=== PATIENT | male | born 1990 | race American Indian/Alaskan Native ===

== ENCOUNTER 2018-08-06 18:40 | Emergency (ER) | payer OTHER ==
[2018-08-06 18:46] VITALS: BP 139/94
[2018-08-06] MEDS ORDERED: NACL 0.9% 1000 ML 1,000 ML IV ONE (18:46)
[2018-08-06] MEDS ORDERED: ZOFRAN IV ONE ×2 (18:46→21:25)
--- NOTE | 2018-08-06 18:50 | Emergency Department Report ---
Blank Doc - Documentation Documentation: 27 y o male with hx of gastroentritis was seen yesterday bu=y GI foe HIDA scan started experiencing n/v since then labs IVF ACC eval
[2018-08-06 19:31] LABS: Basophils % (Auto) 0.3 % (0.0-1.8); Hematocrit 43.5 % (35.5-45.6); Hemoglobin 15.2 gm/dl (11.8-15.2); Lymphocytes # (Auto) 1.5 K/mm3 (1.2-5.4); Lymphocytes % (Auto) 12.2 % (13.4-35.0); Mean Corpuscular HGB Conc 35 % (32-34); Mean Corpuscular Volume 88 fl (84-94); Monocytes # (Auto) 0.9 K/mm3 (0.0-0.8); Platelet Count 314 K/mm3 (140-440); Red Blood Count 4.93 M/mm3 (3.65-5.03); Red Cell Distribution Width 13.2 % (13.2-15.2)
[2018-08-06 19:43] LABS: Alanine Aminotransferase 12 units/L (7-56); BUN/Creatinine Ratio 16; Blood Urea Nitrogen 14 mg/dL (9-20); Calcium 10.3 mg/dL (8.4-10.2); Hemolysis Index 9
[2018-08-06] MEDS ORDERED: TYLENOL ONE (21:06)
[2018-08-06] MEDS ORDERED: TYLENOL PO ONE (21:06)
[2018-08-06] MEDS ORDERED: ZOFRAN ONE (21:25)
[2018-08-06] MEDS ORDERED: TORADOL ONE (21:25)
[2018-08-06] MEDS ORDERED: TORADOL IV ONE (21:25)
[2018-08-06] MEDS ORDERED: BENTYL IM ONE (21:31)
[2018-08-06] MEDS ORDERED: THORAZINE 25 MG in NACL 0.9% 50 ML IV ONE (21:31)
[2018-08-06 22:10] LABS: Bilirubin,Urine NEG (Negative); Blood,Urine NEG (Negative); Color,Urine Yellow (Yellow); Hyaline Casts,Urine 2 /LPF; Mucus,Urine 3+ /HPF
--- NOTE | 2018-08-06 22:12 | Emergency Department Report ---
ED N/V/D HPI - General Chief complaint: Nausea/Vomiting/Diarrhea Stated complaint: VOMITING Time Seen by Provider: 08/06/18 18:43 Source: patient Mode of arrival: Ambulatory Limitations: No Limitations - History of Present Illness Initial comments: 27 y o male with hx of gastroentritis was seen yesterday buy GI Dr. Birch with [facility] for HIDA for persistanc gastritis for past month, after scan started experiencing n/v , since then there is no fever no chills no diarrhea , pain described as cramping and hiccups, symptoms are exacerbated by eating, symptoms are relieved by nothing tried. MD complaint: nausea, vomiting, abdominal pain (cramping and hiccups ) Onset/Timin -: days(s) Description of Vomiting: food contents Associated Abdominal Pain: Yes Location: diffuse Radiation: none Severity: moderate Pain Scale: 4 Quality: cramping Consistency: intermittent Improves with: rest Worsens with: eating Context: other (hx of gastritis chronic problem flare on month ago ) Associated Symptoms: nausea/vomiting - Related Data Previous Rx's Medication Instructions Recorded Last Taken Type HYDROcodone/APAP 5-325 [[place] 1 each PO Q6H PRN #10 tablet 03/07/15 Unknown Rx 5/325] Promethazine [Phenergan TAB] 25 mg PO Q6HR PRN #12 tab 03/07/15 Unknown Rx Dicyclomine [Bentyl] 10 mg PO QID #40 capsule 08/06/18 Unknown Rx Ondansetron [Zofran Odt] 4 mg PO Q8HR PRN #12 tab.rapdis 08/06/18 Unknown Rx Allergies Allergy/AdvReac Type Severity Reaction Status Date / Time seafood Allergy Swelling Uncoded 08/06/18 18:41 ED Review of Systems ROS: Stated complaint: VOMITING Other details as noted in HPI Constitutional: denies: chills, fever Eyes: denies: eye pain, eye discharge, vision change ENT: denies: ear pain, throat pain Respiratory: denies: cough, shortness of breath, SOB with exertion, wheezing Cardiovascular: denies: chest pain, palpitations, syncope, paroxysmal nocturnal dyspnea Endocrine: no symptoms reported Gastrointestinal: abdominal pain, nausea, vomiting. denies: diarrhea, constipation, hematemesis, melena, hematochezia Genitourinary: denies: urgency, dysuria Musculoskeletal: denies: back pain Skin: denies: rash, lesions Neurological: denies: headache, weakness, numbness, paresthesias, confusion, abnormal gait, vertigo Psychiatric: denies: anxiety, depression Hematological/Lymphatic: denies: easy bleeding, easy bruising ED Past Medical Hx - Past Medical History Additional medical history: gastroenteritis - Surgical History Past Surgical History?: No - Social History Smoking Status: Never Smoker Substance Use Type: Marijuana - Medications Home Medications: Home Medications Medication Instructions Recorded Confirmed Last Taken Type HYDROcodone/APAP 5-325 [[place] 1 each PO Q6H PRN #10 tablet 03/07/15 Unknown Rx 5/325] Promethazine [Phenergan TAB] 25 mg PO Q6HR PRN #12 tab 03/07/15 Unknown Rx Dicyclomine [Bentyl] 10 mg PO QID #40 capsule 08/06/18 Unknown Rx Ondansetron [Zofran Odt] 4 mg PO Q8HR PRN #12 tab.rapdis 08/06/18 Unknown Rx ED Physical Exam - General Limitations: No Limitations General appearance: alert, in no apparent distress - Head Head exam: Present: atraumatic, normocephalic - Eye Eye exam: Present: normal appearance - ENT ENT exam: Present: normal orophraynx, mucous membranes moist - Neck Neck exam: Present: normal inspection, full ROM. Absent: tenderness, lymphadenopathy, thyromegaly - Respiratory Respiratory exam: Present: normal lung sounds bilaterally. Absent: respiratory distress, wheezes, stridor, chest wall tenderness - Cardiovascular Cardiovascular Exam: Present: regular rate, normal rhythm, normal heart sounds. Absent: systolic murmur, diastolic murmur, rubs, gallop - GI/Abdominal GI/Abdominal exam: Present: soft, normal bowel sounds. Absent: distended, tenderness, guarding, rebound, rigid, mass, hernia - Expanded GI/Abdominal Exam Expanded GI/Abdominal exam: Absent: psoas sign, obturator sign, heel tap sign, Koch's sign, Rovsing's sign, tenderness at [place]bur[place]'s Point, ascites - Rectal Rectal exam: Present: deferred - Extremities Exam Extremities exam: Present: normal inspection, full ROM, normal capillary refill. Absent: tenderness - Back Exam Back exam: Present: normal inspection. Absent: full ROM, CVA tenderness (R), CVA tenderness (L) - Neurological Exam Neurological exam: Present: alert, oriented X3, CN II-XII intact, normal gait - Psychiatric Psychiatric exam: Present: normal affect, normal mood - Skin Skin exam: Present: warm, dry, intact, normal color. Absent: rash ED Course Vital Signs 08/06/18 08/06/18 18:43 21:07 Temperature 98.1 F Pulse Rate 63 Respiratory 19 18 Rate Blood Pressure 139/94 O2 Sat by Pulse 100 Oximetry ED Medical Decision Making - Lab Data Result diagrams: 08/06/18 19:06 08/06/18 19:06 Labs 08/06/18 08/06/18 08/06/18 19:06 19:06 Unknown WBC 12.4 H RBC 4.93 Hgb 15.2 Hct 43.5 MCV 88 MCH 31 MCHC 35 H RDW 13.2 Plt Count 314 Lymph % (Auto) 12.2 L [place] % (Auto) 7.0 Eos % (Auto) 0.0 Baso % (Auto) 0.3 Lymph # 1.5 [place] # 0.9 H Eos # 0.0 Baso # 0.0 Seg Neutrophils % 80.5 H Seg Neutrophils # 10.0 H Sodium 141 Potassium 3.9 Chloride 99.1 Carbon Dioxide 25 Anion Gap 21 BUN 14 Creatinine 0.9 Estimated GFR > 60 BUN/Creatinine Ratio 16 Glucose 120 H Calcium 10.3 H Total Bilirubin 0.60 AST 17 ALT 12 Alkaline Phosphatase 68 Total Protein 8.3 H Albumin 5.0 Albumin/Globulin Ratio 1.5 Lipase 15 Urine Color Yellow Urine Turbidity Clear Urine pH 5.0 Ur Specific [place] 1.039 H Urine Protein 30 mg/dl Urine Glucose (UA) Neg Urine Ketones 80 Urine Blood Neg Urine Nitrite Neg Urine Bilirubin Neg Urine Urobilinogen 2.0 Ur Leukocyte Esterase Neg Urine WBC (Auto) 2.0 Urine RBC (Auto) 1.0 Hyaline Casts 2 Urine Mucus 3+ - Medical Decision Making Physical exam patient is tolerating by mouth intake without nausea vomiting at this time plan we'll DC to home with Mariusz Patton, and patient will follow up with him gastroenterology Dr. Birch tomorrow as scheduled pt will continue to po hydrate at home return to ed if symptoms return or worsen. pt verbalized agreement and understanding of discharge plan. Critical care attestation.: If time is entered above; I have spent that time in minutes in the direct care of this critically ill patient, excluding procedure time. ED Disposition Clinical Impression: Mild dehydration Nausea and vomiting Qualifiers: Vomiting type: unspecified Vomiting Intractability: non-intractable Qualified Code(s): R11.2 - Nausea with vomiting, unspecified Disposition: DC-01 TO HOME OR SELFCARE Is pt being admited?: No Does the pt Need Aspirin: No Condition: Stable Instructions: Acute Nausea and Vomiting (ED), Dehydration (ED) Additional Instructions: follow up with Dr. Birch [facility] tomorrow. Prescriptions: Dicyclomine [Bentyl] 10 mg PO QID #40 capsule Ondansetron [Zofran Odt] 4 mg PO Q8HR PRN #12 tab.rapdis PRN Reason: Nausea And Vomiting Forms: Work/School Release Form(ED) Time of Disposition: 22:30
== END 2018-08-06 22:52 | disposition home or self-care (01) ==
LOC: ED 18:40
DX: E86.0 Dehydration (principal); F12.10 Cannabis abuse, uncomplicated
CPT/HCPCS: 36415; 80053; 81001; 83690; 85025; 96361; 96365; 96372; 96375; 96376; 99283; J0500; J1885; J2405; J3230; J7030